=== PATIENT | female | born 1995 | race Caucasian/White ===

== ENCOUNTER 2016-06-04 21:26 | Emergency (ER) | payer OTHER ==
[~2016-06-04] VITALS: Ht 167.6 cm; Wt 66.6 kg
[2016-06-04 21:29] VITALS: Ht 167.6 cm; Wt 66.6 kg
[2016-06-04] MEDS ORDERED: LORAZEPAM 2 MG/ML 1 ML VIAL IV STA (22:14)
[2016-06-04] MEDS ORDERED: SODIUM CHLORIDE 0.9% 1000ML 1,000 ML IV ONE (22:15)
[2016-06-04 22:27] LABS: BASO % 0.7 %; BASO ABS # 0.07 K/uL (0-0.2); COMPLETE YES; EOS % 0.9 %; HEMATOCRIT 38.9 % (37-47); IG% 0.3 %; LYMPH % 22.4 %; MEAN CELL VOLUME 88.8 fL (80-100); MEAN CORPUSCULAR HEMOGLOBIN 30.6 pg (25-34); MEAN CORPUSCULAR HGB CONC 34.4 g/dl (32-36); MEAN PLATELET VOLUME 10.7 fL (7.4-10.4); MONO % 9.3 %; NEUT % 66.4 %; PLATELET COUNT 298 K/uL (130-400); RED BLOOD COUNT 4.38 M/uL (4.2-5.4); WHITE BLOOD COUNT 10.29 K/uL (4.8-10.8)
[2016-06-04] MEDS ORDERED: MULT-580 PO (22:35)
[2016-06-04] MEDS ORDERED: MULT-240 PO (22:35)
[2016-06-04] MEDS ORDERED: MAGN500C PO (22:35)
[2016-06-04] MEDS ORDERED: CHOL1000 PO (22:35)
[2016-06-04 22:38] LABS: BUN/CREATININE RATIO 16.4 (10-20); CALCIUM 9.4 mg/dl (8.5-10.1); CREATININE 0.69 mg/dl (0.60-1.20); POTASSIUM 3.4 mmol/L (3.5-5.1)
[2016-06-04 22:48] LABS: ALB/GLOB RATIO 0.9 (0.9-2); THYROID STIMULATING HORMONE 1.03 uIu/ml (0.300-4.500)
--- NOTE | 2016-06-04 22:58 | DIAGNOSTIC IMAGING REPORT ---
CHEST 2 VIEWS ROUTINE CLINICAL HISTORY: anxiety symptoms dyspnea COMPARISON STUDY: No previous studies for comparison. FINDINGS: The bones soft tissues and hemidiaphragms are normal. The cardiomediastinal silhouette is normal. The lungs are clear. The pulmonary vasculature is normal. IMPRESSION: Negative chest. Electronically signed by: Mich Pak M.D. 06/04/2016 10:57 PM
[2016-06-04 23:07] LABS: URINE APPEARANCE CLEAR (CLEAR); URINE BILIRUBIN NEG (NEG); URINE COLOR YELLOW; URINE NITRITE NEG (NEG); URINE PH 6.5 (4.5-7.5); UROBILINOGEN NEG (NEG); ZZUR CULT IF INDIC CLEAN CATCH NO
[2016-06-04 23:21] LABS: MANUAL MICROSCOPIC REQUIRED? NO; REVIEW REQ? NO
[2016-06-04 23:30] LABS: BENZODIAZEPINE, URINE NEG (NEG); COCAINE,URINE NEG (NEG); PHENCYCLIDINE, URINE NEG (NEG)
[2016-06-04 23:55] VITALS: BP 152/81; PULSE 107; TEMP 37.2; O2SAT 99
--- NOTE | 2016-06-07 11:30 | EMERGENCY ROOM VISIT NOTE ---
History First contact with patient: 22:04 Chief Complaint: ABDOMINAL PAIN Stated Complaint: STOMACH FEELS LIKE ITS TWISTING Nursing Triage Summary: Patient reports upper abdominal pain with nausea. History of Present Illness The patient is a 21 year old female who presents to the Emergency Room with complaints of abdominal cramping and chest pain. The patient is also nauseated without vomiting or diarrhea. The patient's symptoms began 90 minutes ago shortly after she was smoking marijuana. The patient does not believe this is the cause of her symptoms, as she has smoked marijuana before. The patient became very anxious, and started having a panic attack. She does have a recent travel history, worsening flu to [place] for the [place]. She returned just yesterday. She is not on control and does not have a history of DVT or PE. She denies chance of . She rates her current discomfort a 9.5/ 10. She has not taken anything [id number] for her symptoms. Review of Systems More than 10 systems were reviewed and otherwise negative with the exception of history of present illness. Past Medical/Surgical History No chronic medical disease Family History No pertinent family history Social History Smoking Status: Current Every Day Smoker Occupation Status: [employer] Current/Historical Medications Scheduled Cholecalciferol (Vitamin D3), 1,000 INTER.UNIT PO Q2D Magnesium Oxide (Mg Supplement (Magnesium), 500 MG PO DAILY Multiple Vitamins W/ Minerals (Womens One Daily), 1 TAB PO DAILY Multiple Vitamins W/ Minerals (Hair/Skin/Nails), 1 TAB PO Q2D Allergies Coded Allergies: No Known Allergies (Unverified , 06/04/16) Physical Exam Vital Signs Date Time Temp Pulse Resp B/P Pulse Ox O2 Delivery O2 Flow Rate FiO2 06/04/16 23:55 37.2 107 23 152/81 99 06/04/16 23:54 107 23 152/81 99 Room Air 06/04/16 22:41 117 23 06/04/16 22:36 99 15 06/04/16 22:31 97 21 06/04/16 22:26 98 19 06/04/16 22:21 123 17 06/04/16 22:16 110 27 06/04/16 22:11 105 32 06/04/16 22:06 113 26 06/04/16 22:06 130 06/04/16 21:29 37.2 155 18 159/84 99 Room Air Physical Exam VITALS: Vitals are noted on the nurse's note and reviewed by myself. Vital signs stable. GENERAL: Very anxious appearing white female who is crying in her emergency department bed. She is cooperative with the examination. HEAD: Normocephalic atraumatic. HEART: Regular rate and rhythm without murmurs gallops or rubs. LUNGS: Clear to auscultation bilaterally without wheezes, rales or rhonchi. No retractions or accessory muscle use. ABDOMEN: Positive normal bowel sounds x 4. Soft, nontender, without masses or organomegaly. No guarding or rebound tenderness. MUSCULOSKELETAL: No muscle atrophy, erythema, or edema noted. Full range of motion without joint tenderness in all extremities. NEURO: Patient was alert and oriented to person place and time. CN II through XII grossly intact. Medical Decision & Procedures ER Provider Diagnostic Interpretation: CHEST 2 VIEWS ROUTINE CLINICAL HISTORY: anxiety symptoms dyspnea COMPARISON STUDY: No previous studies for comparison. FINDINGS: The bones soft tissues and hemidiaphragms are normal. The cardiomediastinal silhouette is normal. The lungs are clear. The pulmonary vasculature is normal. IMPRESSION: Negative chest. Laboratory Results 06/04/16 22:05 Red Blood Count 4.38, Mean Corpuscular Volume 88.8, Mean Corpuscular Hemoglobin 30.6, Mean Corpuscular Hemoglobin Concent 34.4, Mean Platelet Volume 10.7, Neutrophils (%) (Auto) 66.4, Lymphocytes (%) (Auto) 22.4, Monocytes (%) (Auto) 9.3, Eosinophils (%) (Auto) 0.9, Basophils (%) (Auto) 0.7, Neutrophils # (Auto) 6.84, Lymphocytes # (Auto) 2.30, Monocytes # (Auto) 0.96, Eosinophils # (Auto) 0.09, Basophils # (Auto) 0.07 06/04/16 22:05 Test 06/04/16 22:05 06/04/16 22:13 06/04/16 22:14 06/04/16 22:45 White Blood Count 10.29 K/uL (4.8-10.8) Red Blood Count 4.38 M/uL (4.2-5.4) Hemoglobin 13.4 g/dL (12.0-16.0) Hematocrit 38.9 % (37-47) Mean Corpuscular Volume 88.8 fL (80-100) Mean Corpuscular Hemoglobin 30.6 pg (25-34) Mean Corpuscular Hemoglobin Concent 34.4 g/dl (32-36) Platelet Count 298 K/uL (130-400) Mean Platelet Volume 10.7 fL (7.4-10.4) Neutrophils (%) (Auto) 66.4 % Lymphocytes (%) (Auto) 22.4 % Monocytes (%) (Auto) 9.3 % Eosinophils (%) (Auto) 0.9 % Basophils (%) (Auto) 0.7 % Neutrophils # (Auto) 6.84 K/uL (1.4-6.5) Lymphocytes # (Auto) 2.30 K/uL (1.2-3.4) Monocytes # (Auto) 0.96 K/uL (0.11-0.59) Eosinophils # (Auto) 0.09 K/uL (0-0.5) Basophils # (Auto) 0.07 K/uL (0-0.2) RDW Standard Deviation 42.8 fL (36.4-46.3) RDW Coefficient of Variation 13.1 % (11.5-14.5) Immature Granulocyte % (Auto) 0.3 % Immature Granulocyte # (Auto) 0.03 K/uL (0.00-0.02) Anion Gap 8.0 mmol/L (3-11) Est Creatinine Clear Calc Drug Dose 121.7 ml/min Estimated GFR () 145.2 Estimated GFR (Non- 125.3 BUN/Creatinine Ratio 16.4 (10-20) Calcium Level 9.4 mg/dl (8.5-10.1) Magnesium Level 2.0 mg/dl (1.8-2.4) Total Bilirubin 0.3 mg/dl (0.2-1) Aspartate Amino Transf (AST/SGOT) 22 U/L (15-37) Alanine Aminotransferase (ALT/SGPT) 26 U/L (12-78) Alkaline Phosphatase 73 U/L (45-117) Total Protein 8.1 gm/dl (6.4-8.2) Albumin 3.9 gm/dl (3.4-5.0) Globulin 4.2 gm/dl (2.5-4.0) Albumin/Globulin Ratio 0.9 (0.9-2) Lipase 154 U/L (73-393) Thyroid Stimulating Hormone (TSH) 1.030 uIu/ml (0.300-4.500) Bedside D-Dimer 160 ng/mlFEU (0-450) Bedside Troponin I 0.000 ng/ml (0-0.045) Urine Test NEG (NEG) Urine Color YELLOW Urine Appearance CLEAR (CLEAR) Urine pH 6.5 (4.5-7.5) Urine Specific Forbes 1.000 (1.000-1.030) Urine Protein NEG (NEG) Urine Glucose (UA) NEG (NEG) Urine Ketones NEG (NEG) Urine Occult Blood NEG (NEG) Urine Nitrite NEG (NEG) Urine Bilirubin NEG (NEG) Urine Urobilinogen NEG (NEG) Urine Leukocyte Esterase NEG (NEG) Urine Opiates Screen NEG (NEG) Urine Methadone, Qualitative NEG (NEG) Urine Barbiturates NEG (NEG) Urine Phencyclidine (PCP) Level NEG (NEG) Ur Amphetamine/Methamphetamine NEG (NEG) MDMA (Ecstasy) Screen NEG (NEG) Urine Benzodiazepines Screen NEG (NEG) Urine Cocaine Metabolite NEG (NEG) Urine Marijuana (THC) NEG (NEG) Medications Administered Medications (Trade) Dose Ordered Sig/Bessie Route Start Time Stop Time Status Last Admin Dose Admin Sodium Chloride (Nss 1000ml) 1,000 ml @ 999 mls/hr Q1H1M ONCE IV 06/04/16 22:15 06/04/16 23:15 DC 06/04/16 22:31 999 MLS/HR Lorazepam (Ativan Inj) 0.5 mg NOW STAT IV 06/04/16 22:14 06/04/16 22:17 DC 06/04/16 22:30 0.5 MG ED Course Physical exam and history were performed. Nursing notes and EMR were reviewed. Patient appears to have chest pain and epigastric pain after smoking marijuana this evening. She appears very anxious on examination, and is crying upon my arrival to the room. IV access was established and labs were obtained. Chest x -ray was performed. The patient was placed on the shelter monitor. The patient's blood work is as above and was reviewed. The patient's blood work does not reveal a significantly elevated white blood cell count, anemia, bandemia, or gross electrolyte imbalance. Lipase and transaminases are nondiagnostic. Troponin and d-dimer 1 are both negative. TSH is within expected limits. Chest x-ray does not show acute findings. The patient was provided IV saline and Ativan here in the department. She had significant improvement of her symptoms after hydration and anxiolytics. She remained in stable and comfortable condition for several hours here in the department. On reevaluation was, her symptoms were better, and she felt well for discharge home. I feel this is reasonable, as her symptoms are likely secondary to smoking marijuana this evening. I recommended that she avoid products that may exacerbate the symptoms. She is to follow with her primary care physician or [facility] for further care and management. She was otherwise invited back to the ER with any new, worsening, or concerning symptoms. The chart was completed utilizing [employer] Speech Voice Recognition Software. Grammatical errors, random word insertions, pronoun errors, and incomplete sentences are an occasional consequence of this system due to software limitations, ambient noise, and hardware issues. Any formal questions or concerns about the content, text, or information contained within the body of this dictation should be directly addressed to the provider for clarification. . Medical Decision Differential diagnosis includes, but is not limited to: Myocardial infarction, dysrhythmia, pericarditis, pneumothorax, aortic aneurysm/dissection, DVT/PE, anxiety, GERD, PUD, electrolyte imbalance, thyroid disorder, pneumonia, bronchitis, pancreatitis, and others Impression Primary Impression: Anxiety Additional Impression: Marijuana use Departure Information Referrals [facility] (PCP) Patient Instructions A Signature Page
== END 2016-06-04 23:56 | disposition home or self-care (01) ==
LOC: C.EDB 21:27 → C.EDC 23:56
DX: F41.9 Anxiety disorder, unspecified (principal); R11.0 Nausea; R10.9 Unspecified abdominal pain; F17.210 Nicotine dependence, cigarettes, uncomplicated